=== PATIENT | male | born 1955 | race Caucasian/White ===

== ENCOUNTER → 2018-01-28 13:52 | Outpatient (CLI) | payer BC, SELFPAY ==
[2018-01-28 14:15] LABS: Basophils % 0.3 % (0.1-2.0); Eosinophils # 0.1 K/mm3 (0.0-0.4); Eosinophils % 2.8 % (0.1-12.0); Hematocrit 47.1 % (42.0-52.0); Hemoglobin 15.7 g/dL (14.1-18.0); Lymphocytes # 1.8 K/mm3 (0.7-4.5); Lymphocytes % 38.7 K/mm3 (10-50); Mean Corpuscular HGB Conc 33.4 g/dL (31.8-35.4); Mean Corpuscular Hemoglobin 30.3 pg (27.0-31.2); Mean Corpuscular Volume 90.8 fl (80-94); Mean Platelet Volume 7.2 fl (7.4-10.4); Monocytes # 0.2 K/mm3 (0.1-1.0); Monocytes % 4.8 % (1.7-9.3); Neutrophils # 2.5 K/mm3 (1.8-7.8); Neutrophils % 53.4 % (37.0-80.0); Platelet Count 197 K/mm3 (142-424); Red Blood Count 5.19 M/mm3 (4.60-6.20); Red Cell Distribution Width 12.9 % (11.5-17.5); White Blood Count 4.6 K/mm3 (4.8-10.8)
--- NOTE | 2018-01-28 14:54 | XR_ITS ---
XR chest 2V HISTORY: ITS.REASON: DYSPNEA ON EXERTION ORDERING PHYSICIAN: Kwadwo Perez MD PATIENT AGE: 62 years COMPARISON: None FINDINGS: There has been prior median sternotomy. There is mild cardiomegaly without failure. No lobar consolidation or collapse is evident. Slight increased density involves the right lung base laterally and could be due to some overlying pleural thickening. Coronary artery calcifications are present. No acute bony anomalies. IMPRESSION: No acute finding. Prior median sternotomy with coronary artery calcifications and cardiomegaly Mild pleural thickening right lung base laterally
[2018-01-28 16:02] LABS: Alanine Aminotransferase 32 U/L (12-78); Albumin Level 3.7 gm/dL (3.4-5.0); Albumin/Globulin Ratio 1.2 (1.1-1.8); Alkaline Phosphatase 76 U/L (46-116); Anion Gap 8.4 mEq/L (5-15); Aspartate Amino Transferase 17 U/L (15-37); Bilirubin,Total 0.5 mg/dL (0.2-1.0); Blood Urea Nitrogen 19 mg/dL (7-18); Calcium 9.1 mg/dL (8.5-10.1); Carbon Dioxide 30 mmol/L (21.0-32.0); Chloride 106 mmol/L (98-107); Creatinine,Serum 1.02 mg/dL (0.70-1.30); Estimated Glomerular Filt Rate 74 ml/min (>60); GFR (African American) 90 ML/MIN (>60); Globulin 3.2 gm/dl (1.3-3.2); Glucose 96 mg/dL (74-106); Potassium 5.4 mmoL/L (3.5-5.1); Sodium 139 mmol/L (136-145); Thyroid Stimulating Hormone 2.52 uIU/ml (0.358-3.740); Total Protein,Serum 6.9 gm/dL (6.4-8.2)
== END ==
PROVIDERS: Visit Provider Internal Medicine
DX: R06.09 Other forms of dyspnea (principal)
CPT/HCPCS: 36415; 71046; 80053; 84443; 85025

== ENCOUNTER → 2018-01-28 14:12 | Outpatient (POV) | payer BC, SELFPAY | PROVIDERS: Family Provider Internal Medicine Adolescent Medicine; Visit Provider Internal Medicine | DX: Z00.00 Encounter for general adult medical examination without abnormal findings (principal) ==

== ENCOUNTER → 2018-05-14 12:27 | Outpatient (CLI) | payer BC, SELFPAY ==
[2018-05-14 12:45] LABS: Basophils % 0.2 % (0.1-2.0); Eosinophils # 0.1 K/mm3 (0.0-0.4); Eosinophils % 1.8 % (0.1-12.0); Hematocrit 48.5 % (42.0-52.0); Hemoglobin 15.8 g/dL (14.1-18.0); Lymphocytes # 1.6 K/mm3 (0.7-4.5); Lymphocytes % 27.1 % (10-50); Mean Corpuscular HGB Conc 32.5 g/dL (31.8-35.4); Mean Corpuscular Hemoglobin 29.9 pg (27.0-31.2); Monocytes # 0.3 K/mm3 (0.1-1.0); Monocytes % 5.2 % (1.7-9.3); Neutrophils # 3.9 K/mm3 (1.8-7.8); Neutrophils % 65.7 % (37.0-80.0); Platelet Count 211 K/mm3 (142-424); Red Blood Count 5.27 M/mm3 (4.60-6.20); Red Cell Distribution Width 12.9 % (11.5-17.5); White Blood Count 5.9 K/mm3 (4.8-10.8)
[2018-05-14 13:46] LABS: Alanine Aminotransferase 28 U/L (12-78); Albumin Level 3.8 gm/dL (3.4-5.0); Albumin/Globulin Ratio 1.1 (1.1-1.8); Alkaline Phosphatase 82 U/L (46-116); Anion Gap -5.4 mEq/L (5-15); Aspartate Amino Transferase 15 U/L (15-37); Bilirubin,Total 0.5 mg/dL (0.2-1.0); Blood Urea Nitrogen 24 mg/dL (7-18); Calcium 8.9 mg/dL (8.5-10.1); Carbon Dioxide 29 mmol/L (21.0-32.0); Chloride 113 mmol/L (98-107); Chol/HDL Ratio 3.9 (1-3.5); Cholesterol 205 mg/dL (140-200); Creatinine,Serum 1.45 mg/dL (0.70-1.30); Estimated Glomerular Filt Rate 49 ml/min (>60); GFR (African American) 59 ML/MIN (>60); Globulin 3.4 gm/dl (1.3-3.2); Glucose 99 mg/dL (74-106); HDL Cholesterol 53 mg/dL (27-67); LDL Cholesterol 124 mg/dL (0-130); Potassium 5.6 mmoL/L (3.5-5.1); Sodium 131 mmol/L (136-145); Total Protein,Serum 7.2 gm/dL (6.4-8.2); Triglycerides 140 mg/dL (30-200); VLDL Cholesterol 28 mg/dL (0-40)
== END ==
PROVIDERS: Visit Provider Internal Medicine Adolescent Medicine
DX: E78.5 Hyperlipidemia, unspecified (principal); I25.10 Atherosclerotic heart disease of native coronary artery without angina pectoris
CPT/HCPCS: 36415; 80053; 80061; 85025

== ENCOUNTER → 2018-05-29 15:15 | Outpatient (CLI) | payer BC, SELFPAY ==
--- NOTE | 2018-05-29 15:21 | US_ITS ---
US kidney retroperitoneal comp HISTORY: ITS.REASON: RENAL INSUFFICIENCY ORDERING PHYSICIAN: Bjorn Dunham MD PATIENT AGE: 63 years Comparison: None FINDINGS: RIGHT KIDNEY:Unremarkable. Normal size and echogenicity. No hydronephrosis The right kidney measures 11 x 4.3 x 7.5 cm LEFT KIDNEY:Unremarkable. No hydronephrosis. Normal size and echogenicity. Left kidney measures 11.7 x 5.8 x 5.9 cm OTHER FINDINGS: No other pertinent findings IMPRESSION: Negative bilateral renal ultrasound. No hydronephrosis
== END ==
PROVIDERS: PCP Internal Medicine Adolescent Medicine; Visit Provider Internal Medicine Adolescent Medicine
DX: N28.9 Disorder of kidney and ureter, unspecified (principal)
CPT/HCPCS: 76770

== ENCOUNTER → 2018-11-10 15:51 | Outpatient (CLI) | payer BC, SELFPAY ==
[2018-11-10 16:11] LABS: Basophils % 0.3 % (0.1-2.0); Eosinophils # 0.1 K/mm3 (0.0-0.4); Eosinophils % 1.2 % (0.1-12.0); Hematocrit 44.9 % (42.0-52.0); Hemoglobin 14.9 g/dL (14.1-18.0); Lymphocytes # 1.9 K/mm3 (0.7-4.5); Lymphocytes % 36.1 % (10-50); Mean Corpuscular HGB Conc 33.3 g/dL (31.8-35.4); Mean Corpuscular Hemoglobin 30.4 pg (27.0-31.2); Mean Corpuscular Volume 91.2 fl (80-94); Mean Platelet Volume 7.4 fl (7.4-10.4); Monocytes # 0.3 K/mm3 (0.1-1.0); Monocytes % 5.2 % (1.7-9.3); Neutrophils % 57.2 % (37.0-80.0); Platelet Count 185 K/mm3 (142-424); Red Blood Count 4.92 M/mm3 (4.60-6.20); Red Cell Distribution Width 13.4 % (11.5-17.5); White Blood Count 5.3 K/mm3 (4.8-10.8)
[2018-11-10 17:04] LABS: Alanine Aminotransferase 36 U/L (12-78); Albumin Level 3.9 gm/dL (3.4-5.0); Albumin/Globulin Ratio 1.2 (1.1-1.8); Alkaline Phosphatase 76 U/L (46-116); Aspartate Amino Transferase 17 U/L (15-37); Bilirubin,Total 0.5 mg/dL (0.2-1.0); Blood Urea Nitrogen 22 mg/dL (7-18); Calcium 8.9 mg/dL (8.5-10.1); Carbon Dioxide 27 mmol/L (21.0-32.0); Chloride 106 mmol/L (98-107); Chol/HDL Ratio 2.8 (1-3.5); Cholesterol 165 mg/dL (140-200); Creatinine,Serum 1.07 mg/dL (0.70-1.30); Estimated Glomerular Filt Rate 70 ml/min (>60); GFR (African American) 84 ML/MIN (>60); Globulin 3.2 gm/dl (1.3-3.2); Glucose 85 mg/dL (74-106); HDL Cholesterol 58 mg/dL (27-67); LDL Cholesterol 100 mg/dL (0-130); Prostate Specific Ag Screen 1.6 ng/mL (0.0-4.0); Sodium 142 mmol/L (136-145); Total Protein,Serum 7.1 gm/dL (6.4-8.2); Triglycerides 34 mg/dL (30-200); VLDL Cholesterol 7 mg/dL (0-40)
== END ==
PROVIDERS: Visit Provider Internal Medicine Adolescent Medicine
DX: E78.5 Hyperlipidemia, unspecified (principal); I25.10 Atherosclerotic heart disease of native coronary artery without angina pectoris; I10 Essential (primary) hypertension; Z12.5 Encounter for screening for malignant neoplasm of prostate
CPT/HCPCS: 36415; 80053; 80061; 85025; G0103

== ENCOUNTER → 2020-05-06 08:13 | Outpatient (CLI) | payer MEDICARE, SELFPAY ==
[2020-05-06 10:02] LABS: Basophils % 0.3 % (0.1-2.0); Eosinophils # 0.1 K/mm3 (0.0-0.4); Hematocrit 47.6 % (42.0-52.0); Hemoglobin 15.6 g/dL (14.1-18.0); Lymphocytes # 1.2 K/mm3 (0.7-4.5); Lymphocytes % 23.6 % (10-50); Mean Corpuscular HGB Conc 32.7 g/dL (31.8-35.4); Mean Corpuscular Hemoglobin 31.2 pg (27.0-31.2); Mean Corpuscular Volume 95.3 fl (80-94); Mean Platelet Volume 8.2 fl (7.4-10.4); Monocytes # 0.4 K/mm3 (0.1-1.0); Monocytes % 6.7 % (1.7-9.3); Neutrophils # 3.5 K/mm3 (1.8-7.8); Neutrophils % 67.4 % (37.0-80.0); Platelet Count 180 K/mm3 (142-424); White Blood Count 5.2 K/mm3 (4.8-10.8)
[2020-05-06 12:00] LABS: Alanine Aminotransferase 23 U/L (12-78); Albumin/Globulin Ratio 1.5 (1.1-1.8); Alkaline Phosphatase 68 U/L (38-126); Anion Gap 10.2 mEq/L (5-15); Aspartate Amino Transferase 29 U/L (17-59); Bilirubin,Total 0.7 mg/dl (0.2-1.3); Blood Urea Nitrogen 22 mg/dl (9-20); Calcium 9.2 mg/dl (8.4-10.2); Carbon Dioxide 29 mmol/L (22.0-30.0); Chloride 106 mmol/L (98-107); Cholesterol 125 mg/dl (140-200); Estimated Glomerular Filt Rate 85 ml/min (>60); GFR (African American) 102 ML/MIN (>60); Globulin 2.7 g/dL (1.3-3.2); Glucose 99 mg/dl (74-100); HDL Cholesterol 62 mg/dl (40-60); Potassium 5.2 mmoL/L (3.5-5.1); Sodium 140 mmol/L (136-145); Total Protein,Serum 6.7 g/dl (6.3-8.2); Triglycerides 54 mg/dl (30-150); VLDL Cholesterol 11 mg/dL (0-40)
== END ==
PROVIDERS: Visit Provider Internal Medicine Adolescent Medicine
DX: I25.10 Atherosclerotic heart disease of native coronary artery without angina pectoris (principal); E78.5 Hyperlipidemia, unspecified
CPT/HCPCS: 36415; 80053; 80061; 85025

== ENCOUNTER → 2020-05-28 07:55 | Outpatient (CLI) | payer MEDICARE, SELFPAY ==
[2020-05-28 10:12] LABS: Coronavirus 19 IgG Antibody Negative (Negative); Coronavirus 19 IgM Antibody Negative (Negative)
== END ==
PROVIDERS: Visit Provider Internal Medicine Gastroenterology
DX: Z01.812 Encounter for preprocedural laboratory examination (principal)
CPT/HCPCS: 36415; 86328

== ENCOUNTER 2020-05-30 12:59 | Day surgery (SDC) | payer MEDICARE, SELFPAY ==
[2020-05-30 13:30] VITALS: BP 154/76; PULSE 60; RESP 18; TEMP 36.5; O2SAT 98
--- NOTE | 2020-05-30 14:11 | HMH.ANESCL ---
[facility] Anesthesia Checklist - Patient Identification Patient Identification: Arm Band, Verbal (Name & ) - Structural Data Admitted From: Home Planned Operative Procedure/s: Colonoscopy Consent for Planned Operative Procedure(s) Verified: Yes Verified Documents: Surgical Consent, History and Physical - NPO Status Verified Time NPO: 00:00 - Chart Verification Results Verified: CBC, BMP - Additional verifications Anesthesia Reactions: No - Airway Assessment C-Spine Mobility Assessed: Yes TMJ Mobility Assessed: Yes Dentition: Good Dentition (implants) - Neurological Assessment Level of Consciousness: Awake, Alert, Appropriate, Follows Commands Hx Seizures: No Numbness or tingling in extremities: No - Anesthesia Plan Anesthesia Risk discussed: Yes Anesthesia Plan: Verified ASA Class: III Anesthesia Type: MAC [facility] History I have reviewed the patient's past medical history: Yes Medical History: Reports:: Cardiomyopathy, Hyperlipidemia, Hypertension Denies:: Cancer, Diabetes Mellitus Type 1, Diabetes Mellitus Type 2, Internal Pacemaker, MRSA, Seizures *Have you ever received a pneumonia vaccine?: Yes *Have you received a flu vaccine this season?: Yes Anesthesia experience/problems:: None Other Surgeries: No: Pacemaker Amputation: No Fractures: No - *Social History Last grade of school completed: High school graduate Smoking Status: Never smoker Alcohol Intake: never Substance Use Type: denies use *Occupational Status:: retired Housing: house Household Members: spouse *Travel in the last 8 weeks: None Family Hx:: Unable to obtain
--- NOTE | 2020-05-30 14:20 | P.PCN_ITS ---
[facility] Procedure Note Procedure Note:: Colonoscopy Procedure Report: Colonoscopy with cold snare polypectomy Endoscopist: Bryce Smith II, MD Referring physician: Bjorn Dunham M.D. Date of Procedure: May 30, 2020 Equipment: Olympus 180 variable stiffness pediatric colonoscope Sedation: MAC sedation Indication: Mr. Rosales is a 65-year-old gentleman who is here for follow-up screening/surveillance colonoscopy. The patient did have a colonoscopy in May 2010 that was entirely normal. He reports no abdominal pain, weight loss, change in his bowel habits or rectal bleeding. He reports no family history of colon cancer. He does have loose bowel movements with some bowel frequency. Procedure: Prior to the procedure, a history and physical exam was performed, and patient's medications and allergies were reviewed. The risks, benefits and alternatives of the sedation and procedure were discussed with the patient. All questions were answered and informed consent was obtained. The patient was brought to the procedure room. Patient identification and proposed procedure were verified by the physician and the nurse. The patient was placed in a left lateral decubitus position and the scope was passed under direct vision. Throughout the procedure, the patient's blood pressure, pulse, and oxygen saturations were charito tored continuously. The colonoscopy was accomplished without difficulty. The patient tolerated the procedure well. Findings: On digital rectal examination there was normal rectal tone. There were no external hemorrhoids. The colonoscope was introduced through the anal canal to the rectum and advanced to the cecum. The ileocecal valve and appendiceal orifice were identified. The scope was advanced a short distance into the ileum which appeared grossly normal. The scope was then withdrawn into the colon. There were a total of 7 diminutive colon polyps (cecum x2 (3 and 4 mm), transverse and descending x4 (3, 3, 4 and 4 mm) and sigmoid x1 (3 mm)). These were all removed via cold snare polypectomy. There were mildly scattered diverticuli throughout the descending and sigmoid colon (LEFT colon). The rectum itself was normal. Upon retroflexion within the rectum there were grade 1-2 internal hemorrhoids. The preparation was excellent throughout with [place] Preparation Score of 9. The cecal time was 12 minutes. Impression: 1. Diminutive colonic polyps x7 2. Mild left-sided diverticulosis 3. Grade 1-2 internal hemorrhoids Plan: I will follow up the polyp pathology and recommend repeat colonoscopy again in 3-5 years based upon the polyp histology. I would encourage bulking fiber supplementation on a long-term daily maintenance basis.
[2020-05-30 14:21] VITALS: BP 125/70; PULSE 66; RESP 18; TEMP 36.4; O2SAT 95
[2020-05-30 14:31] VITALS: BP 124/81; PULSE 59; RESP 18; O2SAT 98
[2020-05-30 14:41] VITALS: BP 134/71; PULSE 59; RESP 18; O2SAT 100
[2020-05-30 14:51] VITALS: BP 134/76; PULSE 60; RESP 18; O2SAT 99
== END 2020-05-30 14:51 | disposition home or self-care (01) ==
LOC: OUTP 13:01
PROVIDERS: PCP Internal Medicine Adolescent Medicine; Visit Provider Internal Medicine Gastroenterology
PROC: 0DJD8ZZ Inspection of Lower Intestinal Tract, Via Natural or Artificial Opening Endoscopic (ICD-10-PCS; CPT 45378; principal; 2020-05-30 14:00)
DX: Z12.11 Encounter for screening for malignant neoplasm of colon (principal); K63.5 Polyp of colon; K57.30 Diverticulosis of large intestine without perforation or abscess without bleeding; K64.0 First degree hemorrhoids; I42.9 Cardiomyopathy, unspecified; E78.5 Hyperlipidemia, unspecified; I10 Essential (primary) hypertension; Z79.82 Long term (current) use of aspirin; Z79.899 Other long term (current) drug therapy
CPT/HCPCS: 45385; 88305

== ENCOUNTER → 2021-07-08 11:31 | Outpatient (CLI) | payer MEDICARE, SELFPAY ==
[2021-07-08 14:16] LABS: Basophils # 0.1 K/mm3 (0-0.2); Basophils % 0.9 % (0.1-2.0); Eosinophils # 0.1 K/mm3 (0.0-0.4); Eosinophils % 1.8 % (0.1-12.0); Hematocrit 48.3 % (42.0-52.0); Hemoglobin 15.9 g/dL (14.1-18.0); Lymphocytes % 38.7 % (10-50); Mean Corpuscular HGB Conc 32.8 g/dL (31.8-35.4); Mean Corpuscular Hemoglobin 30.7 pg (27.0-31.2); Mean Corpuscular Volume 93.6 fl (80-94); Mean Platelet Volume 8.4 fl (7.4-10.4); Monocytes # 0.2 K/mm3 (0.1-1.0); Monocytes % 4.6 % (1.7-9.3); Neutrophils # 2.8 K/mm3 (1.8-7.8); Platelet Count 221 K/mm3 (142-424); Red Blood Count 5.16 M/mm3 (4.60-6.20); Red Cell Distribution Width 12.8 % (11.5-17.5); White Blood Count 5.2 K/mm3 (4.8-10.8)
[2021-07-08 15:06] LABS: Chloride 102 mmol/L (98-107)
[2021-07-08 15:07] LABS: Potassium 5.2 mmoL/L (3.5-5.1); Sodium 140 mmol/L (136-145)
[2021-07-08 15:09] LABS: Alanine Aminotransferase 22 U/L (12-78); Alkaline Phosphatase 83 U/L (38-126); Aspartate Amino Transferase 32 U/L (17-59); Bilirubin,Total 0.7 mg/dl (0.2-1.3)
[2021-07-08 15:10] LABS: Albumin Level 4.3 g/dl (3.5-5.0); Albumin/Globulin Ratio 1.4 (1.1-1.8); Anion Gap 18.2 mEq/L (5-15); Carbon Dioxide 25 mmol/L (22.0-30.0); Chol/HDL Ratio 3.1 (1-3.5); Cholesterol 117 mg/dl (140-200); Glucose 86 mg/dl (74-100); HDL Cholesterol 38 mg/dl (40-60); Total Protein,Serum 7.3 g/dl (6.3-8.2); Triglycerides 87 mg/dl (30-150); VLDL Cholesterol 17 mg/dL (0-40)
[2021-07-08 15:14] LABS: Blood Urea Nitrogen 24 mg/dl (9-20); Estimated Glomerular Filt Rate 84 ml/min (>60); GFR (African American) 102 ML/MIN (>60)
[2021-07-08 15:32] LABS: Hemoglobin A1C 5.7 % (4.0-6.0)
== END ==
PROVIDERS: Visit Provider Internal Medicine Adolescent Medicine
DX: Z00.00 Encounter for general adult medical examination without abnormal findings (principal); I10 Essential (primary) hypertension; Z79.899 Other long term (current) drug therapy
CPT/HCPCS: 36415; 80053; 80061; 83036; 85025

== ENCOUNTER → 2023-06-17 11:32 | Outpatient (CLI) | payer MEDICARE, SELFPAY ==
[2023-06-17 12:09] LABS: Basophils % 0.3 % (0.1-2.0); Eosinophils # 0.1 K/mm3 (0.0-0.4); Eosinophils % 1.9 % (0.1-12.0); Hematocrit 44.9 % (42.0-52.0); Hemoglobin 15.2 g/dL (14.1-18.0); Lymphocytes # 1.9 K/mm3 (0.7-4.5); Lymphocytes % 36.4 % (10-50); Mean Corpuscular HGB Conc 33.7 g/dL (31.8-35.4); Mean Corpuscular Hemoglobin 30.5 pg (27.0-31.2); Mean Corpuscular Volume 90.3 fl (80-94); Mean Platelet Volume 6.9 fl (7.4-10.4); Monocytes # 0.3 K/mm3 (0.1-1.0); Monocytes % 5.5 % (1.7-9.3); Neutrophils # 2.9 K/mm3 (1.8-7.8); Neutrophils % 55.8 % (37.0-80.0); Platelet Count 178 K/mm3 (142-424); Red Blood Count 4.97 M/mm3 (4.60-6.20); Red Cell Distribution Width 12.9 % (11.5-17.5); White Blood Count 5.3 K/mm3 (4.8-10.8)
[2023-06-17 12:42] LABS: Chloride 106 mmol/L (98-107); Potassium 4.9 mmoL/L (3.5-5.1)
[2023-06-17 12:45] LABS: Alanine Aminotransferase 24 U/L (12-78); Albumin Level 4.4 g/dl (3.5-5.0); Albumin/Globulin Ratio 1.6 (1.1-1.8); Alkaline Phosphatase 60 U/L (38-126); Aspartate Amino Transferase 30 U/L (17-59); Bilirubin,Total 0.7 mg/dl (0.2-1.3); Blood Urea Nitrogen 23 mg/dl (9-20); Carbon Dioxide 28 mmol/L (22.0-30.0); Cholesterol 107 mg/dl (140-200); Estimated Glomerular Filt Rate 84 ml/min (>60); GFR (African American) 102 ML/MIN (>60); Globulin 2.8 g/dL (1.3-3.2); Total Protein,Serum 7.2 g/dl (6.3-8.2); Triglycerides 62 mg/dl (30-150); VLDL Cholesterol 12 mg/dL (0-40)
[2023-06-17 12:46] LABS: Calcium 8.8 mg/dl (8.4-10.2); Chol/HDL Ratio 2.5 (1-3.5); Glucose 105 mg/dl (74-100); HDL Cholesterol 43 mg/dl (40-60)
[2023-06-17 13:15] LABS: Direct LDL Cholesterol 56.55 mg/dL (100-129)
[2023-06-17 14:31] LABS: Anion Gap 10.9 mEq/L (5-15); Sodium 140 mmol/L (136-145)
[2023-06-17 14:43] LABS: Vitamin B12 666 pg/mL (239-931)
== END ==
PROVIDERS: PCP Internal Medicine Adolescent Medicine; Visit Provider Internal Medicine Adolescent Medicine
DX: I25.10 Atherosclerotic heart disease of native coronary artery without angina pectoris; E78.5 Hyperlipidemia, unspecified; E53.8 Deficiency of other specified B group vitamins
CPT/HCPCS: 36415; 80053; 80061; 82607; 85025

== ENCOUNTER 2023-12-19 11:15 | Outpatient (CLI) | payer MEDICARE, SELFPAY ==
--- NOTE | 2023-12-19 | CA_ITS ---
APPROVED REPORT Exam: Pharmacologic Technologist: Venita Freire, Ht: 6 ft 0 in Wt: 205 lbs BSA: 2.15 m2 HR: 60 bpm BP: 140/78 mmHg Rhythm: NSR, LBBB Indications: SOA, CAD Medical History Medications: Aspirin,,,,, Metoprolol,,,,, Flonase,,,,, RoSUVASTATIN,,,,, Allergies: No known drug allergies Cardiac Risk Factors: FHX of CAD Stress Test Details Test: LEXISCAN HR Resting HR: 62 bpm Max Heart Rate (APMHR): 152 bpm Max HR Achieved: 100 bpm Target HR (85% APMHR): 129 bpm % of APMHR: 66 Recovery HR: 85 bpm BP Resting BP: 140/78 mmHg Max BP: 170/80 mmHg Recovery BP: 117.0/81.0 mmHg ECG Resting ECG: NSR, LBBB Stress ECG: No significant ST changes Arrhythmia: PVCs Clinical Exercise duration: 04:00 min Highest Stage Achieved: Stress ECG Conclusion PT HAD MILD ANXIETY AND HEAD DISCOMFORT NO CHEST PAIN NO SIGNIFICANT ST CHANGES CONCLUSION NON-DIAGNOSTIC LEXISCAN STRESS DUE TO UNDERLYING LBBB MYOVIEW IMAGES REPORTED SEPARATELY Test Summary REST 10:30 . . 62 . 140/ 78 . . Stage 1 01:00 . . 94 . . . . Stage 2 01:00 . . 98 . 153/ 82 . . Stage 3 01:00 . . 93 . 154/ 76 . . Stage 4 01:00 . . 89 . 170/ 80 . Stop exercise at 04:00 RECOVERY 01:00 . . 81 . 129/ 78 . . RECOVERY 02:00 . . 85 . 107/ 77 . . RECOVERY 03:00 . . 85 . 117/ 81 . . RECOVERY 03:18 . . 89 . 117/ 81 . . Electronically signed by : Kathie Watson MD 12/21/2023 23:39:25
--- NOTE | 2023-12-19 11:29 | NM_ITS ---
APPROVED REPORT Exam: Nuclear Stress Test Indication: soa Patient Location: Outpatient Stress Tech: Venita Freire [place] Tech:Vicky Muñoz MARKAbril RT(R)(N) Ht: 6 ft 0 in Wt: 205 lbs HR: 62 bpm BP: 140/78 mmHg BSA: 2.15 m2 Rhythm: NSR TID: 1.16 History: soa Procedure: Patient received 0.4 mg of intravenous Lexiscan, resting heart rate 62 bpm, resting blood pressure 140/78 mmHg, with Lexiscan maximum heart rate achieved was 100 bpm which is 85 % of the maximum predicted heart rate and blood pressure was 170/80 mmHg. With Lexiscan, patient denied any complaint of chest pain. Cardiac Stress and Resting SPECT Images: Cardiac Stress and Resting SPECT images were obtained using technetium 99m Myoview 31.4 mCi stress and 10.07 mCi at rest. Resting and stress imaging in supine and prone positions demonstrate a large sized, moderate, predominantly fixed perfusion defect in the inferior, septal, and inferoseptal LV garcia. There is a region of reversibility in the surrounding territory. Gated imaging demonstrates low normal global LV systolic function. There is mild hypokinesis of the basal inferior LV wall. LVEF is calculated at 51%. Conclusion: Large sized, moderate, predominantly fixed perfusion defect in the inferior, septal, and inferoseptal LV garcia. There is minimal reversibility in the surrounding region. Findings are suggestive of predominant infarct with a region of surrounding ischemia. Gated imaging demonstrates low normal global LV systolic function. There is mild hypokinesis of the basal inferior LV wall. LVEF is calculated at 51%. Electronically signed by : Kathie Watson MD 12/21/2023 23:42:58
[2023-12-19] MEDS: ISOTOPE MYOVIEW (PER STUDY) 1 DOSE IV (13:08)
[2023-12-19] MEDS: SODIUM CHLORIDE 0.9% 10ML SYR (RAD ONLY) 10 ML IV ×2 (13:08)
[2023-12-19] MEDS: REGADENOSON 0.4MG/5ML SYRINGE 0.4 MG IV (13:08)
== END 2023-12-19 23:59 | disposition home or self-care (01) ==
LOC: RAD 11:15
PROVIDERS: PCP Internal Medicine Adolescent Medicine; Visit Provider Internal Medicine Adolescent Medicine
DX: E78.5 Hyperlipidemia, unspecified (principal); R06.02 Shortness of breath
CPT/HCPCS: 78452; 93017; 93018; A9502; J2785